=== PATIENT | male | born 1940 | race Asian ===

== ENCOUNTER → 2016-07-30 | Outpatient (CLI) | payer MEDICARE, OTHER ==
[~2016-07-30] MED LIST: ATEN25 PO; FENO48TA15 PO; FINA1TAB17 PO; LEVO25TA4 PO; SESTAMIBI TC99M/UD ISOTOPE 1 EA INJ INJ ONE; SIMV5TAB6 PO
== END | disposition home or self-care (01) ==
LOC: RADMN 09:09
PROVIDERS: ATTEND Internal Medicine Nephrology
DX: D35.1 Benign neoplasm of parathyroid gland (principal)
CPT/HCPCS: 78070; A9500